=== PATIENT | male | born 1945 ===

== ENCOUNTER 2024-04-13 06:56 | Day surgery (SDC) | payer MEDICARE ==
[~2024-04-13] VITALS: Ht 175.3 cm; Wt 80.7 kg
[~2024-04-13 06:56] MED LIST: Balanced Salt Epinephrine Irrigation Solution 500 mL IR SCH; Lidocaine HCl/Pf 1% 5 ML VIAL ONE; Lidocaine HCl/Pf 1% 5 ML VIAL XX SCH; Moxifloxacin HCL 0.5 MG/0.1 ML 0.4MLSYR RIGHTEYE SCH; PHENYLEPHRINE\\TROPICAMIDE\\TETRACAINE OPHTHALMIC DILATING SOLN RIGHTEYE PRN; Povidone-Iodine 450 DROP/30 ML Solution ONE; Povidone-Iodine 450 DROP/30 ML Solution RIGHTEYE SCH; Tetracaine HCl/Pf 0.5% Opth Soln 4 ml ONE
[2024-04-13] MEDS ORDERED: Diazepam 2 MG Tab ONE (07:21)
[2024-04-13] MEDS ORDERED: Diazepam 5 MG Tab ONE (07:22)
[2024-04-13] MEDS ORDERED: ATOR40TA PO (07:39)
[2024-04-13] MEDS ORDERED: METO100ER PO (07:39)
[2024-04-13] MEDS ORDERED: LOSA50 PO (07:39)
[2024-04-13] MEDS ORDERED: ATOR10 PO (07:40)
--- NOTE | 2024-04-13 07:45 | NUR ---
04/13/24 0745 Bunny Watkins CALL LIGHT WITHIN REACH. TETRACAINE IN RIGHT EYE AT 0740 AND PLEDGETT IN AT 0741. PT ON CONTINOUS PULSE OXIMETER FOR OBSERVATION.
--- NOTE | 2024-04-13 09:17 | NUR ---
04/13/24 0917 HUAN ALCAZAR RN, TRAVELER ASSISTING W/ CARE.
== END 2024-04-13 09:15 | disposition home or self-care (01) ==
LOC: ORSCSDS 06:56
PROVIDERS: Student in an Organized Health Care Education/Training Program
PROC: 08RJ3JZ Replacement of Right Lens with Synthetic Substitute, Percutaneous Approach (ICD-10-PCS; principal; 2024-04-13 08:30)
DX: H25.813 Combined forms of age-related cataract, bilateral (principal); H35.3132 Nonexudative age-related macular degeneration, bilateral, intermediate dry stage; I10 Essential (primary) hypertension; Z79.899 Other long term (current) drug therapy
CPT/HCPCS: A9270; J2003; V2632

== ENCOUNTER 2024-04-20 07:49 | Day surgery (SDC) | payer MEDICARE ==
[~2024-04-20] VITALS: Ht 175.3 cm; Wt 80.5 kg
[~2024-04-20 07:49] MED LIST changes: +ATOR10 PO; +ATOR40TA PO; +LOSA50 PO; -Lidocaine HCl/Pf 1% 5 ML VIAL ONE; +METO100ER PO; +Moxifloxacin HCL 0.5 MG/0.1 ML 0.4MLSYR LEFTEYE SCH; -Moxifloxacin HCL 0.5 MG/0.1 ML 0.4MLSYR RIGHTEYE SCH; +PHENYLEPHRINE\\TROPICAMIDE\\TETRACAINE OPHTHALMIC DILATING SOLN LEFTEYE PRN; -PHENYLEPHRINE\\TROPICAMIDE\\TETRACAINE OPHTHALMIC DILATING SOLN RIGHTEYE PRN; +Povidone-Iodine 450 DROP/30 ML Solution LEFTEYE SCH; -Povidone-Iodine 450 DROP/30 ML Solution RIGHTEYE SCH
[2024-04-20] MEDS ORDERED: Diazepam 5 MG Tab ONE (08:30)
[2024-04-20] MEDS ORDERED: Diazepam 2 MG Tab ONE (08:30)
--- NOTE | 2024-04-20 09:03 | NUR ---
04/20/24 0903 Cici Petty ANXIETY REASSESSED AT 0/10 PER PT. CALL LIGHT IN REACH
== END 2024-04-20 09:58 | disposition home or self-care (01) ==
LOC: ORSCSDS 07:49
PROVIDERS: Student in an Organized Health Care Education/Training Program
PROC: 08RK3JZ Replacement of Left Lens with Synthetic Substitute, Percutaneous Approach (ICD-10-PCS; principal; 2024-04-20 09:30)
DX: H25.812 Combined forms of age-related cataract, left eye (principal); Z96.1 Presence of intraocular lens; I10 Essential (primary) hypertension; E78.5 Hyperlipidemia, unspecified; Z79.899 Other long term (current) drug therapy
CPT/HCPCS: A9270; V2632